=== PATIENT | female | born 1975 | race Caucasian/White ===

== ENCOUNTER → 2017-04-11 15:00 | Outpatient (CLI) | payer OTHER, BC, SELFPAY ==
--- NOTE | 2017-04-11 15:04 | RAD_ITS ---
STUDY: X-RAY CHEST REASON FOR EXAM: Female, 42 years old. 3 week history of cough. TECHNIQUE: PA and lateral views of the chest. COMPARISON: None. FINDINGS: The lungs are clear and expanded. There is no demonstrated pleural abnormality. Normal size heart. Normal mediastinum and derrek. Normal visualized pulmonary arteries. Normal visualized aortic arch and descending thoracic aorta. Normal visualized thoracic spine. Normal visualized ribs, clavicles, and shoulders. There is no demonstrated abnormality of the visualized soft tissue structures of the upper abdomen. RAD/Chest PA and Lateral IMPRESSION: Normal x-ray examination of the chest. Electronically Signed: Tommie Shankar MD at 15:22 EST Tel [phone], Service support ,
== END ==
PROVIDERS: Family Provider Nurse Practitioner Family; PCP Nurse Practitioner Family; Visit Provider Physician Assistant Surgical
DX: R09.89 Other specified symptoms and signs involving the circulatory and respiratory systems (principal)
CPT/HCPCS: 71046

== ENCOUNTER → 2017-12-03 16:14 | Outpatient (CLI) | payer OTHER, BC, SELFPAY ==
[2017-12-09 03:07] LABS: Alternaria tenuis <0.10 kU/L (Class 0); Ash, White 0.12 kU/L (Class 0/I); Aspergillus fumigatus 0.61 kU/L (Class II); Bermuda Grass 0.14 kU/L (Class 0/I); Birch 0.11 kU/L (Class 0/I); Black Walnut 0.14 kU/L (Class 0/I); Cat Hair / Dander,Stand <0.10 kU/L (Class 0); Cedar, Mountain 0.26 kU/L (Class 0/I); Cladosporium herbarum <0.10 kU/L (Class 0); Cockroach, American 1.64 kU/L (Class III); Cottonwood 0.16 kU/L (Class 0/I); D farinae Mite 1.66 kU/L (Class III); D pteronyssinus 1.42 kU/L (Class III); Dog Epithelia <0.10 kU/L (Class 0); Elm, American White 0.16 kU/L (Class 0/I); Immunoglobulin E 946 IU/mL (0-100); Maple/Box Elder 0.14 kU/L (Class 0/I); Mulberry, White 0.18 kU/L (Class 0/I); Oak, White 0.12 kU/L (Class 0/I); Pecan 0.12 kU/L (Class 0/I); Penicillium Notatum 0.66 kU/L (Class II); Pigweed, Rough 0.13 kU/L (Class 0/I); Ragweed, Short/Common 0.14 kU/L (Class 0/I); Russian Thistle 0.12 kU/L (Class 0/I); Sheep Sorrel 0.14 kU/L (Class 0/I); Sycamore, American 0.13 kU/L (Class 0/I); Timothy Grass 0.13 kU/L (Class 0/I)
[2017-12-09 11:44] LABS: Mouse Urine <0.10 kU/L (Class 0)
[2017-12-09 11:45] LABS: Immunoglobulin E 953 IU/mL (0-100)
== END ==
PROVIDERS: Family Provider Nurse Practitioner Family; PCP Nurse Practitioner Family; Referring Provider Otolaryngology Otolaryngology/Facial Plastic Surgery; Visit Provider Otolaryngology Otolaryngology/Facial Plastic Surgery
DX: T78.40XA Allergy, unspecified, initial encounter (principal)
CPT/HCPCS: 36415; 82785; 86003

== ENCOUNTER → 2018-03-21 09:44 | Outpatient (CLI) | payer OTHER, BC, SELFPAY ==
[2017-07-21 10:37] VITALS: BMI 35.7
[2018-03-21 10:54] LABS: Hematocrit 41.7 % (37-47); Hemoglobin 13.7 g/dl (12.0-15.0); Mean Corp Hgb Conc 32.9 g/gl (32-36); Mean Corpuscular Hgb 27.9 pg (27.0-32.0); Mean Corpuscular Volume 84.9 fL (81-99); Mean Platelet Vol. 9.3 fl (6.2-12.0); Platelet Count 541 K/mm3 (150-450); RBC Distribution Width CV 14.9 % (11.6-14.6); RBC Distribution Width SD 44.8 fl (35.1-43.9); Red Blood Count 4.91 M/mm3 (4.2-5.4); White Blood Count 11.2 K/mm3 (4.4-11.0)
[2018-03-21 10:55] LABS: Scan Indicated on CBC? Y/N NO
[2018-03-21 11:15] LABS: ALB/GLOB Ratio 0.9 RATIO (0.9-2.4); AST(SGOT) 11 U/L (15-37); Alanine Aminotransfer ALT/SGPT 17 U/L (13-56); Albumin, Serum 3.3 g/dL (3.2-5.0); Alkaline Phosphatase 90 U/L (45-117); Anion Gap 7 (5-15); BUN 17 mg/dL (7-18); BUN/Creat Ratio 20.2 RATIO (10-20); Calcium,Total 8.2 mg/dL (8.5-10.1); Chloride 105 mmol/L (98-107); Cholesterol 188 mg/dL (200); Creatinine, Serum 0.84 mg/dL (0.55-1.02); EST Glomerular Filtration Rate 78 mL/min (>60); Est Glom Filt Rate - Afr Amer 95 mL/min (>60); Globulin 3.8 g/dL (2.2-4.2); Glucose 86 mg/dL (74-106); High Density Lipoprotein 35 mg/dL; Potassium 3.9 mmol/L (3.5-5.1); Protein, Total 7.1 g/dL (6.4-8.2); Sodium Level 140 mmol/L (136-145); Triglycerides 193 mg/dL; Very Low Density Lipoprotein 39 mg/dL (5-40)
== END ==
PROVIDERS: Family Provider Nurse Practitioner Family; PCP Nurse Practitioner Family; Referring Provider Nurse Practitioner Family; Visit Provider Nurse Practitioner Family
DX: I10 Essential (primary) hypertension (principal); Z13.220 Encounter for screening for lipoid disorders
CPT/HCPCS: 36415; 80053; 80061; 85027

== ENCOUNTER → 2018-07-30 | Outpatient (CLI) | payer OTHER, BC, SELFPAY ==
[2017-07-21 10:37] VITALS: BMI 35.7
[2018-08-02 13:12] LABS: Anti-Nuclear Antibody Test Negative (.)
== END | disposition home or self-care (01) ==
PROVIDERS: Family Provider Nurse Practitioner Family; PCP Nurse Practitioner Family; Referring Provider Nurse Practitioner Family; Visit Provider Nurse Practitioner Family
DX: L71.8 Other rosacea (principal)
CPT/HCPCS: 36415; 86038

== ENCOUNTER → 2018-12-23 15:51 | Outpatient (CLI) | payer OTHER, BC, SELFPAY ==
[2017-07-21 10:37] VITALS: BMI 35.7
[2018-12-23 17:30] LABS: Potassium 3.5 mmol/L (3.5-5.1)
== END ==
PROVIDERS: Family Provider Nurse Practitioner Family; PCP Nurse Practitioner Family; Referring Provider Otolaryngology Otolaryngology/Facial Plastic Surgery; Visit Provider Otolaryngology Otolaryngology/Facial Plastic Surgery
DX: Z79.899 Other long term (current) drug therapy (principal)
CPT/HCPCS: 36415; 84132

== ENCOUNTER → 2019-09-30 08:31 | Outpatient (CLI) | payer BC, SELFPAY ==
[2019-09-30] VITALS (8 sets, daily range): BP systolic 101–129; BP diastolic 41–84; PULSE 66–78; RESP 12–19; TEMP 37.1; O2SAT 96–99; BMI 34.9
--- NOTE | 2019-09-30 | BMB_PTH ---
PATIENT: JARAD ADRIAN LOC: [place] U#:[id number] AGE/SX: 50/F ROOM: RE09/30/[address]: Dr. Gian Longoria DO : 1975 BED: DIS: SPEC #: [id number] RECD: 09/30/19 11:12 STATUS: JOVI REQ #: [id number] PARDEEP: 09/30/19 00:[address]: Gian Longoria DEPT: BONE MARROW RECD BY: Emely Bishop ENTERED: 09/30/19 11:13 SP TYPE: BMB OTHR DR: Mariah Sellers, JASBIR Tissues: A - Bone marrow, NOS B - Bone marrow, NOS C - Bone marrow, NOS Procedures: Decalcification bone/plaque Bone Marrow Aspiration Bone Marrow Core Biopsy Iron Stain Bone Marrow HEADER OPERATION: Bone marrow biopsy and aspiration PRE-OP DIAGNOSIS: Thrombocytosis TISSUE SUBMITTED: A - Core, B - Clot, C - Smears, and send outs (flow, cytogenetics) BONE MARROW DIAGNOSIS Bone marrow core, clot and aspirate smears: Scant marrow tissue with trilineage hematopoiesis. Peripheral blood - neutrophilic leukocytosis and thrombocytosis. Iron - absent. Flow cytometry study from [facility] shows no phenotypic evidence of abnormal myeloid maturation, increased blasts or lymphoproliferative disorder. Please see patient's EMR for complete report. Cytogenetic studies are pending at this time. See comment. SJ:karin 10/04/19 COMMENT No bone marrow core tissue is identified. Aspirate clot shows scant marrow tissue with trilineage hematopoiesis. Cellularity cannot be assessed due to the small fragment of hematopoietic marrow tissue. Correlation with clinical, laboratory findings and appropriate follow up are necessary. Case has been reviewed in consultation with Dr. Daniels who concurs with the above diagnosis. IDC:AM BONE MARROW STUDY Slides are reviewed. CBC DATE: 08/14/19 WBC 11.6; RBC 4.76; HGB 13.8; HCT 41.6; MCV 87.4; RDW 14.4; PLTS 480,000 SEGS 73.4%; LYMPHS 17.2%; MONOS 6.9%; EOS 1.4%; BASOS 0.5% PERIPHERAL SMEAR: Submitted. RBC: Normocytic and normochromic. WBC: Neutrophilic leukocytosis. The WBC count is compatible to as reported above. PLTS: Mildly increased. BONE MARROW ASPIRATE DIFFERENTIAL: 200 cell count. Blasts % (normal 0-2): 1 Promyelocytes % (normal 1-5): 2 Myelocytes and metamyelocytes % (normal 17-41): 17 Bands and Segs % (normal 15-32): 53 Eos % (normal 1-6): 4 Basos % (normal 0-1): 0 Monocytes % (normal 0-4): 0 Erythroid Precursors % (normal 17-35): 18 Lymphocytes % (normal 7-13): 5 Plasma Cells % (normal 0-2): 0 ASPIRATE FINDINGS: Site: Not specified Spicular, Cellular M/E ratio: 4.2 (Normal 1.5-4.0) Megakaryocytes: Present. A few hypolobated and micromegakaryocytes are noted. Erythropoiesis: Normoblastic. Granulopoiesis: Progressive. Mild myeloid hyperplasia is noted. Comment: Significant dysplastic changes are not seen. CORE BIOPSY FINDINGS: Site: Not specified No bone trabeculae are identified. The entire specimen is submitted for cell block preparation and no hematopoietic elements are noted. ASPIRATE CLOT FINDINGS: Site: Not specified Marrow particles: Rare Comment: A minute fragment of hematopoietic marrow tissue is noted showing trilineage hematopoiesis. SPECIAL STAINS WITH MATCHED CONTROLS: Iron: Absent Reticulin: No significant increase of reticulin fibers is noted. PAS: Highlights myeloid cells and megakaryocytes. BONE MARROW GROSS A - Received is a container labeled with the patient's name and designated bone marrow. No obvious bone core is identified and the fluid is submitted for cell block preparation. B - Received labeled with the patient's name and designated bone marrow is a specimen that consists of approximately 7 cc of bloody fluid that on filtration yields multiple minute fragments of blood clots measuring in aggregate 1 x 0.5 x 0.1 cm. The specimen is totally submitted in one cassette. C - Also received are 16 unstained and 1 peripheral stained slides. The unstained slides are submitted for appropriate staining. Also received are two green top tubes which are sent to our reference lab for flow and cytogenetics. / JIMMY:karin 10/01/19 TC:5 CPT: 58342, 02376, 00266 x2, 74712 x3 ADDENDUM ADDENDUM ADDENDUM ADDENDUM ADDENDUM ADDENDUM ADDENDUM ADDENDUM 10/07/2019 09:28 ADDENDUM 10/07/2019 09:28 ADDENDUM 10/07/2019 09:28 ADDENDUM 10/07/2019 09:28 ADDENDUM 10/07/2019 09:28 CYTOGENETICS REPORT FROM [facility] INTERPRETATION: A normal female chromosome complement was observed in twenty metaphases analyzed. Karyotype: 46,XX[20] Please see complete report in e-chart or EMR for further details
--- NOTE | 2019-09-30 08:48 | CT_ITS ---
PROCEDURE: CT GUIDED BONE marrow biopsy and aspirate of the posterior aspect of the right iliac bone. DATE: 09/30/2019. INDICATION: Female, 44 years old. Thrombocytopenia. PHYSICIAN: Tommie Shankar M.D. RADIATION DOSAGE (If Supplied By Facility): CTDIvol = ( 15 ) mGy, DLP = ( 403.64 ) mGycm. Individualized dose optimization techniques were utilized. PROCEDURE: The risks, benefits, and alternatives to the procedure were explained to the patient. The specific risk of hemorrhage requiring further treatment or intervention was detailed and accepted. Follow-up instructions were discussed with the patient as well. Written informed consent was obtained. The patient was brought into the CT suite and placed in the prone position. . An appropriate entry site was identified. The overlying skin was prepped and draped in the usual sterile fashion. 1% lidocaine was administered subcutaneously for local anesthesia. Conscious sedation was performed. The patient received 2 mg of VERSED and 50 mcg FENTANYL intravenously. Conscious sedation was started at 10:11 AM and terminated at 10:25 AM the patient was independently monitored by the Under CT guidance, a bone marrow biopsy as well as bone marrow aspirates of the posterior aspect of the right iliac bone were performed The specimens were then placed in the appropriate fluid and transported to the laboratory for analysis. Hemostasis was obtained. The patient tolerated the procedure well without immediate complications. CT/Biopsy/Inj or Needle Placement IMPRESSION: Successful CT guided bone marrow biopsy and aspirate from the posterior aspect of the right iliac bone, as described above. Electronically Signed: Tommie Shankar, at 10:57 EDT , Service support ,
[2019-09-30 09:25] LABS: Absolute Lymphocyte Count 1.99 X10^3/uL (0.83-4.51); Absolute Neutrophil Count 8.5 X10^3/uL (2.0-7.7); Basophil# 0.06 X10^3/uL; Basophil% 0.5 % (0-1); Eosinophil# 0.16 X10^3/uL; Eosinophils% 1.4 % (0-5); Hematocrit 41.6 % (37-47); Hemoglobin 13.8 g/dL (12.0-15.0); Lymphocyte # 1.99 X10^3/ul (4.0); Lymphocyte % 17.2 % (19-41); Mean Corp Hgb Conc 33.2 g/dL (32-36); Mean Corpuscular Volume 87.4 fL (81-99); Mean Platelet Vol. 8.7 fl (6.2-12.0); Monocyte% 6.9 % (0-10); NRBC Flagged by Analyzer 0 % (0-5); Neutrophil % 73.4 % (47-70); Platelet Count 480 K/mm3 (150-450); RBC Distribution Width CV 14.4 % (11.6-14.6); RBC Distribution Width SD 45.8 fl (35.1-43.9); Red Blood Count 4.76 M/mm3 (4.2-5.4); White Blood Count 11.6 K/mm3 (4.4-11.0)
[2019-09-30] MEDS: Midazolam 2 MG/2 ML Syringe IV (10:11)
[2019-09-30] MEDS: fentaNYL 100 MCG/2 ML Ampul IV (10:11)
== END ==
PROVIDERS: PCP Nurse Practitioner Family; Referring Provider Internal Medicine Hematology & Oncology; Visit Provider Internal Medicine Hematology & Oncology
DX: D69.6 Thrombocytopenia, unspecified (principal)
CPT/HCPCS: 38221; 36415; 77012; 85025; 88305; 88311; 88313; 99156; J7040

== ENCOUNTER → 2021-01-23 08:24 | Outpatient (CLI) | payer BC, SELFPAY ==
[2021-01-23 12:16] LABS: Hematocrit 43.1 % (37-47); Hemoglobin 13.9 g/dL (12.0-15.0); Mean Corp Hgb Conc 32.3 g/dL (32-36); Mean Corpuscular Hgb 27.5 pg (27.0-32.0); Mean Corpuscular Volume 85.3 fL (81-99); Mean Platelet Vol. 9.2 fl (6.2-12.0); Platelet Count 485 K/mm3 (150-450); RBC Distribution Width CV 14.6 % (11.6-14.6); RBC Distribution Width SD 45.3 fl (35.1-43.9); Red Blood Count 5.05 M/mm3 (4.2-5.4); White Blood Count 9.8 K/mm3 (4.4-11.0)
[2021-01-23 12:45] LABS: ALB/GLOB Ratio 0.8 RATIO (0.9-2.4); AST(SGOT) 13 U/L (15-37); Alanine Aminotransfer ALT/SGPT 21 U/L (13-56); Albumin, Serum 3.4 g/dL (3.2-5.0); Alkaline Phosphatase 85 U/L (45-117); Anion Gap 8 (5-15); BUN 22 mg/dL (7-18); BUN/Creat Ratio 22.1 RATIO (10-20); Calcium,Total 8.9 mg/dL (8.5-10.1); Chloride 104 mmol/L (98-107); Cholesterol 197 mg/dL (200); EST Glomerular Filtration Rate 63 mL/min (>60); Est Glom Filt Rate - Afr Amer 77 mL/min (>60); Globulin 4.1 g/dL (2.2-4.2); Glucose 82 mg/dL (74-106); High Density Lipoprotein 41 mg/dL; Potassium 4.1 mmol/L (3.5-5.1); Protein, Total 7.5 g/dL (6.4-8.2); Sodium Level 138 mmol/L (136-145); Triglycerides 198 mg/dL; Very Low Density Lipoprotein 40 mg/dL (5-40)
== END ==
PROVIDERS: PCP Nurse Practitioner Family; Referring Provider Nurse Practitioner Family; Visit Provider Nurse Practitioner Family
DX: Z00.00 Encounter for general adult medical examination without abnormal findings (principal); D47.3 Essential (hemorrhagic) thrombocythemia; I10 Essential (primary) hypertension; E78.5 Hyperlipidemia, unspecified
CPT/HCPCS: 36415; 80053; 80061; 85027

== ENCOUNTER 2021-07-16 08:48 | Outpatient (RCR) | payer BC, SELFPAY ==
--- NOTE | 2021-07-16 09:50 | HP.PTEVAL ---
Patient's Visit Information JARAD ADRIAN is a 46 year old F referred to Physical Therapy by Dr. Reuben Chairez MD with a diagnosis of POLYNEUROPATHY AND LOW BACK PAIN. Date of Evaluation: 07/16/21 Physical Therapist: April Mix PT, Cert MDT - Visit Plan Frequency: 2-3x /Week Duration: 4-6 Weeks Plan: CONSIDER AQUATIC THERAPY IF NOT TOLERATING LAND. LOW BACK US, POSTURE CORRECTION/STRENGTHENING, INSTRUCTION IN APPROPRIATE BODY MECHANICS AND ACTIVITY MODIFICATIONS. DLS STARTING WITH A NEUTRAL SPINE PROGRESSING ROM TOLERATED. ROSE LE ROM, STRETCHING AND STRENGTHENING. HEP INSTRUCTION. 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 Disability: NO. Present symptoms: ROSE LOW BACK PAIN. ROSE FOOT NUMBNESS AND TINGLING JUST IN THE TOES - MAILY DIGITS 1, 2 AND 3. Present since: BACK PAIN STARTED A FEW YEARS AGO BUT TOES STARTED ABOUT A YEAR AGO. Pain Scale: WORST 8/10, LEAST 1/10. Currently: 1/10. Commenced as a result of: NO APPARENT REASON. FIRST TIME BACK HURT WAS 19 YEARS AGO WHEN SHE PICKED HER DAUGHTER UP OFF THE FLOOR. Symptoms at onset: LOW BACK PAIN. Worse: BENDING, PICKING UP GRANDKIDS. Better: IBUPROFEN, PRESCRIPTION IBUPROFEN. Disturbed sleep: NO. Previous history/Previous treatment: ED A FEW TIMES FOR BACK PAIN. MASSAGE THERAPY OCCASSIONALLY WITH TEMPORARY BENEFIT. REGULAR CHIROPRACTIC FOR ABOUT A YEAR - TEMPORARY RELIEF. NO BACK SURGERY. NO JESSICA'S. NO PHYSICAL THERPAY. Treatment this episode: PRESCRIPTION ANTI-INFLAMMATORY. Coughing/sneezing/straining: POSITIVE. Gait: AT TIMES FEELS A CLICKING IN LOW BACK. Difficulty initiating urination: NO. Bowel or Bladder Dysfunction: NO. Accidents: NO. Unexplained weight loss: NO. Imaging: NONE RECENT. NCT PENDING - AWAITING SAMUEL'T TIME. MRI RECOMMENDED BY DR. CHAIREZ PER PATIENT. BLOODWORK ALSO ORDERED. PMH/Recent major surgery: RAJIV HUITRON, THROMBOCYTOSIS - HIGH PLATELET COUNT FROM UNKNOWN CAUSE. - Objective Sitting/Standing Posture: POOR. INCREASED LORDOSIS. NO RELEVANT LATERAL SHIFT. Active Correction of posture: NE. Other Observations: INDEP GAIT AND TRANSFERS. Sensory deficit: ROSE LE LIGHT TOUCH SENSATION GROSSLY INTACT AND SYMMETRICAL. ROM deficit: TIGHT ROSE LE HIP FLEXORS, HS'S AND GASTROC SOLEUS COMPLEX'S. Motor deficit: ROSE LE'S 5/5 WITH MMT'ING EXCEPT HIPS 4/5. Reflexes: UNABLE TO ELICIT ROSE LE DTR'S. Dural Signs: NEGATIVE ROSE LE'S. Lumbar mvmt loss: flex - MIN. ext - MIN. R SG - MIN. L SG - MIN. Core strength: POOR. Palpation: NO ACUTE LUMBAR OR HIP TENDERNESS. TREATMENT: NEUROMUSCULAR REEDUCATION - RETRAINING OF MVMT AND POSTURE FOR SITTING, LYING AND STANDING ACTIVITIES. - Balance/Special Test Scores Oswestry Low Back Score: 6 - Goals Goal 1:: DECREASE C/O LOW BACK AND ROSE FOOT SX'S. Goal Time Frame: 4-6 Weeks Goal 2:: IMPROVE LIFTING, TRAVEL AND WORK/HOMEMAKING FUNCTION Goal Time Frame: 4-6 Weeks Goal 3:: INSTRUCT IN PROPHYLAXIS - Anticipated Interventions Patient/Client Instruction: Educate patient on: Condition, Plan of Care, Risk Factors For the Purpose of:: To improve self management Therapeutic Exercise to Include: Strength training, Body mechanics, Postural training, Flexibilty training, Neuromotor development, Dynamic Lumbar Stabilization For the Purpose of:: To decrease pain, To improve muscle performance and motor function, To increase tolerance to activity/condition/position, To improve ability of physical actions for home/community/work/leisure TENS: Yes IF ES: Yes Cryotherapy (ice pack, ice massage): Yes Thermo therapy (hot pack): Yes Ultrasound (thermal/non thermal): Yes For the Purpose of:: To decrease pain, To improve nutrient delivery to tissue Thank you for the opportunity to evaluate your patient. For Medicare and Medicare HMO plans, please review the plan of care and approve it. It will need to be FAXED BACK to us at [phone] for Medicare purposes. For Medicare only, by signing this I certify the plan of care. Please let me know if there are questions or concerns regarding this plan of care. Physician Signature: Date:
--- NOTE | 2021-12-04 13:00 | HP.PT.NRP ---
JARAD ADRIAN was seen in my office for initial evaluation on 07/16/21. The following Plan of Care was established for this patient: Initial Frequency: 2-3x /Week Initial Duration: 4-6 Weeks Patient/Client Instruction: Educate patient on: Condition, Plan of Care, Risk Factors For the Purpose of:: To improve self management Therapeutic Exercise to Include: Strength training, Body mechanics, Postural training, Flexibilty training, Neuromotor development, Dynamic Lumbar Stabilization For the Purpose of:: To decrease pain, To improve muscle performance and motor function, To increase tolerance to activity/condition/position, To improve ability of physical actions for home/community/work/leisure TENS: Yes IF ES: Yes Cryotherapy (ice pack, ice massage): Yes Thermo therapy (hot pack): Yes Ultrasound (thermal/non thermal): Yes For the Purpose of:: To decrease pain, To improve nutrient delivery to tissue This patient was last seen in our office 07/16/21. Pertinent comments regarding their Physical therapy will appear below: This patient has not returned to Physical Therapy and is appropriate to return to MD for further follow-up as needed. At this point I will be discontinuing this patient from physical therapy. I would be happy to see this patient again in the future if found appropriate by the physician. Thank you! April Mix, PT, Cert MDT Balance/Gait/Functional tests - Balance/Special Test Scores Oswestry Low Back Score: 6
== END 2021-07-16 19:00 | disposition home or self-care (01) ==
LOC: PT 08:48
PROVIDERS: PCP Nurse Practitioner Family; Referring Provider Psychiatry & Neurology Neurology; Visit Provider Psychiatry & Neurology Neurology
DX: G62.9 Polyneuropathy, unspecified (principal); M54.50 Low back pain, unspecified
CPT/HCPCS: 97162; 97530

== ENCOUNTER → 2021-08-02 | Outpatient (CLI) | payer BC, SELFPAY ==
[2021-08-02 10:21] LABS: Hematocrit 41.4 % (37-47); Hemoglobin 13.4 g/dL (12.0-15.0); Mean Corp Hgb Conc 32.4 g/dL (32-36); Mean Corpuscular Hgb 28.3 pg (27.0-32.0); Mean Corpuscular Volume 87.5 fL (81-99); Mean Platelet Vol. 9.1 fl (6.2-12.0); Platelet Count 470 K/mm3 (150-450); RBC Distribution Width CV 14.1 % (11.6-14.6); RBC Distribution Width SD 45.5 fl (35.1-43.9); Red Blood Count 4.73 M/mm3 (4.2-5.4); White Blood Count 6.5 K/mm3 (4.4-11.0)
[2021-08-02 10:36] LABS: Vitamin B12 415 pg/mL (211-911)
[2021-08-02 10:53] LABS: ALB/GLOB Ratio 1.1 RATIO (0.9-2.4); AST(SGOT) 13 U/L (15-37); Alanine Aminotransfer ALT/SGPT 26 U/L (13-56); Albumin, Serum 3.6 g/dL (3.2-5.0); Alkaline Phosphatase 71 U/L (45-117); Anion Gap 4 (5-15); BUN 21 mg/dL (7-18); BUN/Creat Ratio 23.4 RATIO (10-20); Calcium,Total 8.6 mg/dL (8.5-10.1); Chloride 105 mmol/L (98-107); EST Glomerular Filtration Rate 71 mL/min (>60); Est Glom Filt Rate - Afr Amer 86 mL/min (>60); Globulin 3.2 g/dL (2.2-4.2); Glucose 93 mg/dL (74-106); Potassium 4.4 mmol/L (3.5-5.1); Protein, Total 6.8 g/dL (6.4-8.2); Sodium Level 137 mmol/L (136-145); Thyroid Stim Hormone (TSH) 1.71 uIU/mL (0.358-3.74)
[2021-08-07 10:11] LABS: Free Kappa Light Chains 29.1 mg/L (3.3-19.4); Free Lambda Light Chains 20.1 mg/L (5.7-26.3)
[2021-08-07 15:50] LABS: Vitamin B1, Thiamine 139.4 nmol/L (66.5-200.0)
== END | disposition home or self-care (01) ==
LOC: MTLAB 08:11
PROVIDERS: PCP Nurse Practitioner Family; Referring Provider Psychiatry & Neurology Neurology; Visit Provider Psychiatry & Neurology Neurology
DX: G62.9 Polyneuropathy, unspecified (principal)
CPT/HCPCS: 80053; 82607; 82746; 83883; 84425; 84443; 85027

== ENCOUNTER → 2021-08-31 | Outpatient (CLI) | payer BC, SELFPAY ==
--- NOTE | 2021-08-31 09:52 | NEURO ---
NCS and/or EMG Patient Report Ordering Doctor: Reuben Hudson DATE OF SERVICE: 08/31/21 Indication: Approximately one year of bilateral foot numbness and tingling. Symptoms are primarily localized to the anterior, medial, plantar surfaces. Intermittent localized back pain. Findings: Nerve conduction studies were performed in the right and left lower extremities. The right peroneal motor study recording the extensor digitorum brevis showed a normal amplitude, normal distal latency and normal conduction velocity. No conduction block or focal slowing was present across the fibular neck. The right tibial motor study recording the abductor hallucis brevis showed a normal amplitude, normal distal latency and normal conduction velocity. The right tibial motor study recording the abductor digiti quinti pedis showed a normal amplitude, normal distal latency and normal conduction velocity. Right sural sensory response showed a normal amplitude and conduction velocity. Right superficial peroneal sensory response showed a normal amplitude and conduction velocity. The right medial planter mixed response was absent despite multiple attempts. The left peroneal motor study recording the extensor digitorum brevis showed a normal amplitude, normal distal latency and normal conduction velocity. No conduction block or focal slowing was present across the fibular neck. The left tibial motor study recording the abductor hallucis brevis showed a normal amplitude, normal distal latency and normal conduction velocity. Left sural sensory response showed a normal amplitude and conduction velocity. Left superficial peroneal sensory response showed a normal amplitude and conduction velocity. The left medial planter mixed response showed a normal amplitude and conduction velocity. Needle EMG of the right lower extremity and lumbar muscles was performed. No denervation was present in any muscle. Motor units in the abductor hallucis were slightly large amplitude and long duration. All other muscles demonstrated normal motor unit morphology, activation, and recruitment patterns. Impression: This is a mildly abnormal study. There is no definitive electrophysiologic evidence of peripheral neuropathy, lumbosacral radiculopathy or distal tibial neuropathy across either the right or left tarsal tunnel. 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 There is evidence of reinnervation in the abductor hallucis, which it supplies, though these changes can occur naturally within intrinsic foot muscles due to repetitive mechanical trauma of ambulation. Salbador Pittman D.O. Multi Select Codes Neurology Neurology Interp Codes: 42548-69 Musc test done w/n test comp (interp) and 14890-10 Nrv cndj test 9-10 studies (interp)
== END | disposition home or self-care (01) ==
LOC: PSN 08:28
PROVIDERS: PCP Nurse Practitioner Family; Referring Provider Psychiatry & Neurology Neurology; Visit Provider Psychiatry & Neurology Neurology
DX: M54.50 Low back pain, unspecified (principal); G62.9 Polyneuropathy, unspecified
CPT/HCPCS: 95886; 95911

== ENCOUNTER → 2021-10-11 | Outpatient (CLI) | payer BC, SELFPAY ==
[2021-10-15 12:08] LABS: Albumin 3.5 g/dL (2.9-4.4); Alpha-1-Globulins 0.2 g/dL (0.0-0.4); Alpha-2-Globulins 0.7 g/dL (0.4-1.0); Immunoglobulin A 210 mg/dL (87-352); Immunoglobulin G 957 mg/dL (586-1602); Immunoglobulin M 90 mg/dL (26-217); PROEL- TOTAL PROTEIN 6.5 g/dL (6.0-8.5)
== END | disposition home or self-care (01) ==
LOC: MTLAB 09:25
PROVIDERS: PCP Nurse Practitioner Family; Referring Provider Psychiatry & Neurology Neurology; Visit Provider Psychiatry & Neurology Neurology
DX: R76.8 Other specified abnormal immunological findings in serum (principal)
CPT/HCPCS: 36415; 82784; 84165; 86334; 86335

== ENCOUNTER → 2022-11-27 | Outpatient (CLI) | payer BC, SELFPAY ==
[2022-11-27 10:10] LABS: Hematocrit 41.4 % (37-47); Hemoglobin 13.4 g/dL (12.0-15.0); Mean Corp Hgb Conc 32.4 g/dL (32-36); Mean Corpuscular Hgb 28.9 pg (27.0-32.0); Mean Corpuscular Volume 89.4 fL (81-99); Mean Platelet Vol. 9.5 fl (6.2-12.0); Platelet Count 422 K/mm3 (150-450); RBC Distribution Width CV 13.6 % (11.6-14.6); RBC Distribution Width SD 44.5 fl (35.1-43.9); Red Blood Count 4.63 M/mm3 (4.2-5.4); White Blood Count 7.1 K/mm3 (4.4-11.0)
[2022-11-27 11:11] LABS: ALB/GLOB Ratio 1.1 RATIO (0.9-2.4); AST(SGOT) 13 U/L (15-37); Alanine Aminotransfer ALT/SGPT 21 U/L (13-56); Albumin, Serum 3.4 g/dL (3.2-5.0); Alkaline Phosphatase 57 U/L (45-117); Anion Gap 6 (5-15); BUN 13 mg/dL (7-18); BUN/Creat Ratio 13.2 RATIO (10-20); Calcium,Total 8.6 mg/dL (8.5-10.1); Chloride 106 mmol/L (98-107); Cholesterol 157 mg/dL (200); Creatinine, Serum 0.99 mg/dL (0.55-1.02); EST Glomerular Filtration Rate 64 mL/min (>60); Est Glom Filt Rate - Afr Amer 77 mL/min (>60); Globulin 3.1 g/dL (2.2-4.2); Glucose 68 mg/dL (74-106); High Density Lipoprotein 44 mg/dL; Potassium 3.4 mmol/L (3.5-5.1); Protein, Total 6.5 g/dL (6.4-8.2); Sodium Level 139 mmol/L (136-145); Triglycerides 121 mg/dL; Very Low Density Lipoprotein 24 mg/dL (5-40)
== END | disposition home or self-care (01) ==
PROVIDERS: PCP Nurse Practitioner Family; Referring Provider Nurse Practitioner Family; Visit Provider Nurse Practitioner Family
DX: Z00.00 Encounter for general adult medical examination without abnormal findings (principal); D75.839 Thrombocytosis, unspecified; I10 Essential (primary) hypertension; E78.5 Hyperlipidemia, unspecified
CPT/HCPCS: 36415; 80053; 80061; 85027

== ENCOUNTER → 2024-10-27 | Outpatient (CLI) | payer OTHER, SELFPAY ==
--- NOTE | 2024-10-27 11:44 | RAD_ITS ---
PROCEDURE: NASAL BONES MIN 3 VIEWS 10/27/2024 REASON FOR EXAM: NOSE INJURY TECHNIQUE: Procedure Code: RADNB Modality: DX Procedure: NASAL BONES MIN 3 VIEWS COMPARISON: None FINDINGS: Bones: No fracture seen. Sinuses: Sinuses are clear. Additional findings: RAD/Nasal Bones min 3 Views IMPRESSION: No nasal fracture seen. Reading Location: [place] [id number]
== END | disposition home or self-care (01) ==
LOC: MTRAD 11:44
PROVIDERS: PCP Nurse Practitioner Family; Referring Provider Nurse Practitioner; Visit Provider Nurse Practitioner
DX: S09.92XA Unspecified injury of nose, initial encounter (principal); X58.XXXA Exposure to other specified factors, initial encounter
CPT/HCPCS: 70160